=== PATIENT | female | born 1945 | race Caucasian/White ===

== ENCOUNTER → 2017-12-16 12:08 | Outpatient (CLI) | payer MEDICARE, SELFPAY ==
[2017-12-16 12:36] LABS: Basophils # 0.1 K/mm3 (0-0.2); Basophils % 1.3 % (0.1-2.0); Eosinophils # 0.2 K/mm3 (0.0-0.4); Eosinophils % 2.9 % (0.1-12.0); Hematocrit 27.8 % (37.0-47.0); Hemoglobin 8.1 g/dL (12.2-16.2); Lymphocytes # 2.1 K/mm3 (0.7-4.5); Lymphocytes % 35.9 K/mm3 (10-50); Mean Corpuscular HGB Conc 29.2 g/dL (31.8-35.4); Mean Corpuscular Hemoglobin 22.3 pg (27.0-31.2); Mean Corpuscular Volume 76.6 fl (81-99); Mean Platelet Volume 10.6 fl (7.4-10.4); Monocytes # 0.4 K/mm3 (0.1-1.0); Monocytes % 6.6 % (1.7-9.3); Neutrophils # 3.2 K/mm3 (1.8-7.8); Neutrophils % 53.3 % (37.0-80.0); Platelet Count 335 K/mm3 (142-424); Red Blood Count 3.63 M/mm3 (4.20-5.40); Red Cell Distribution Width 15.5 % (11.5-17.5); White Blood Count 5.9 K/mm3 (4.8-10.8)
[2017-12-16 12:58] LABS: Hemoglobin A1C 6.6 % (0.0-7.0)
[2017-12-16 14:20] LABS: Alanine Aminotransferase 25 U/L (12-78); Albumin Level 4.1 gm/dL (3.4-5.0); Albumin/Globulin Ratio 1.4 (1.1-1.8); Alkaline Phosphatase 76 U/L (46-116); Anion Gap 13.2 mEq/L (5-15); Aspartate Amino Transferase 14 U/L (15-37); Bilirubin,Total 0.5 mg/dL (0.2-1.0); Blood Urea Nitrogen 15 mg/dL (7-18); Calcium 9.5 mg/dL (8.5-10.1); Carbon Dioxide 27 mmol/L (21.0-32.0); Chloride 110 mmol/L (98-107); Creatinine,Serum 0.75 mg/dL (0.55-1.02); Estimated Glomerular Filt Rate 76 ml/min (>60); Ferritin 3 ng/mL (8-388); GFR (African American) 92 ML/MIN (>60); Globulin 2.9 gm/dl (1.3-3.2); Glucose 56 mg/dL (74-106); Potassium 4.2 mmoL/L (3.5-5.1); Sodium 146 mmol/L (136-145); Thyroid Stimulating Hormone 1.54 uIU/ml (0.358-3.740)
[2017-12-18 11:16] LABS: Iron 15 ug/dL (27-139); UIBC 478 ug/dL (118-369)
[2017-12-19 05:15] LABS: Folate 9.2 ng/mL (>3.0)
[2017-12-19 06:28] LABS: Iron Saturation 3 % (15-55)
[2017-12-19 06:31] LABS: Vitamin B12 224 pg/mL (232-1245)
== END ==
PROVIDERS: PCP Nurse Practitioner Family; Visit Provider Nurse Practitioner Family
DX: D64.9 Anemia, unspecified (principal); E11.9 Type 2 diabetes mellitus without complications; I73.9 Peripheral vascular disease, unspecified
CPT/HCPCS: 36415; 80053; 82607; 82728; 82746; 83036; 83550; 84443; 85025; 86850

== ENCOUNTER → 2017-12-18 15:06 | Outpatient (CLI) | payer MEDICARE, SELFPAY ==
[2017-12-18 16:43] LABS: Occult Blood,Stool Negative (Negative)
== END ==
PROVIDERS: PCP Nurse Practitioner Family; Visit Provider Nurse Practitioner Family
DX: D64.9 Anemia, unspecified (principal); I73.9 Peripheral vascular disease, unspecified
CPT/HCPCS: 82272; G0328

== ENCOUNTER 2017-12-19 08:14 | Outpatient (CLI) | payer MEDICARE, SELFPAY ==
[2017-12-19] VITALS (19 sets, daily range): BP systolic 132–159; BP diastolic 56–89; PULSE 72–86; RESP 18; TEMP 36.4–36.6; O2SAT 97–98; BMI 27.4
[2017-12-19 14:49] LABS: Hematocrit 31.1 % (37.0-47.0); Hemoglobin 9.4 g/dL (12.2-16.2)
== END 2017-12-19 15:05 | disposition home or self-care (01) ==
LOC: INF 08:16
PROVIDERS: Family Provider Nurse Practitioner Family; PCP Nurse Practitioner Family; Visit Provider Nurse Practitioner Family
DX: D64.9 Anemia, unspecified (principal)
CPT/HCPCS: 36430; 85014; 85018; 86850; P9016

== ENCOUNTER → 2018-01-01 14:36 | Outpatient (CLI) | payer MEDICARE, SELFPAY ==
[2018-01-01 15:11] LABS: Basophils # 0.1 K/mm3 (0-0.2); Basophils % 1.4 % (0.1-2.0); Eosinophils # 0.2 K/mm3 (0.0-0.4); Eosinophils % 3.2 % (0.1-12.0); Hemoglobin 10.4 g/dL (12.2-16.2); Lymphocytes # 2.9 K/mm3 (0.7-4.5); Lymphocytes % 41.4 K/mm3 (10-50); Mean Corpuscular Hemoglobin 22.8 pg (27.0-31.2); Mean Corpuscular Volume 78.6 fl (81-99); Mean Platelet Volume 9.3 fl (7.4-10.4); Monocytes # 0.5 K/mm3 (0.1-1.0); Monocytes % 7.2 % (1.7-9.3); Neutrophils # 3.3 K/mm3 (1.8-7.8); Neutrophils % 46.9 % (37.0-80.0); Platelet Count 382 K/mm3 (142-424); Red Blood Count 4.57 M/mm3 (4.20-5.40); Red Cell Distribution Width 17.7 % (11.5-17.5)
[2018-01-01 15:38] LABS: Blood Urea Nitrogen 16 mg/dL (7-18); Carbon Dioxide 27 mmol/L (21.0-32.0); Creatinine,Serum 0.74 mg/dL (0.55-1.02); Estimated Glomerular Filt Rate 78 ml/min (>60); GFR (African American) 94 ML/MIN (>60); Glucose 100 mg/dL (74-106)
[2018-01-01 18:08] LABS: Chloride 106 mmol/L (98-107); Sodium 143 mmol/L (136-145)
== END ==
PROVIDERS: Visit Provider Nurse Practitioner Family
DX: D50.9 Iron deficiency anemia, unspecified (principal)
CPT/HCPCS: 36415; 80048; 85025

== ENCOUNTER → 2021-08-02 12:06 | Outpatient (CLI) | payer MEDICARE, SELFPAY ==
[2021-08-02 12:34] LABS: Basophils # 0.1 K/mm3 (0-0.2); Basophils % 1.5 % (0.1-2.0); Eosinophils # 0.5 K/mm3 (0.0-0.4); Eosinophils % 5.9 % (0.1-12.0); Hematocrit 38.4 % (37.0-47.0); Hemoglobin 11.7 g/dL (12.2-16.2); Lymphocytes # 2.7 K/mm3 (0.7-4.5); Lymphocytes % 33.9 % (10-50); Mean Corpuscular HGB Conc 30.3 g/dL (31.8-35.4); Mean Corpuscular Hemoglobin 27.2 pg (27.0-31.2); Mean Corpuscular Volume 89.7 fl (81-99); Mean Platelet Volume 9.8 fl (7.4-10.4); Monocytes # 0.5 K/mm3 (0.1-1.0); Monocytes % 5.8 % (1.7-9.3); Neutrophils # 4.1 K/mm3 (1.8-7.8); Neutrophils % 52.9 % (37.0-80.0); Platelet Count 380 K/mm3 (142-424); Red Blood Count 4.29 M/mm3 (4.20-5.40); Red Cell Distribution Width 15.5 % (11.5-17.5); White Blood Count 7.8 K/mm3 (4.8-10.8)
[2021-08-02 13:16] LABS: Chloride 104 mmol/L (98-107); Sodium 140 mmol/L (136-145)
[2021-08-02 13:17] LABS: Potassium 4.4 mmoL/L (3.5-5.1)
[2021-08-02 13:19] LABS: Blood Urea Nitrogen 20 mg/dl (7-17)
[2021-08-02 13:20] LABS: Anion Gap 12.4 mEq/L (5-15); Calcium 11.1 mg/dl (8.4-10.2); Carbon Dioxide 28 mmol/L (22.0-30.0); Estimated Glomerular Filt Rate 98 ml/min (>60); GFR (African American) 118 ML/MIN (>60); Glucose 133 mg/dl (74-100); Magnesium 1.6 mg/dl (1.6-2.3)
== END ==
PROVIDERS: Visit Provider Nurse Practitioner Family
DX: I73.9 Peripheral vascular disease, unspecified (principal); Z79.899 Other long term (current) drug therapy
CPT/HCPCS: 36415; 80048; 83735; 85025

== ENCOUNTER → 2021-11-03 15:35 | Outpatient (CLI) | payer MEDICARE, SELFPAY ==
[2021-11-03 16:44] LABS: Basophils # 0.2 K/mm3 (0-0.2); Basophils % 1.5 % (0.1-2.0); Eosinophils # 0.3 K/mm3 (0.0-0.4); Eosinophils % 2.2 % (0.1-12.0); Hematocrit 38.1 % (37.0-47.0); Hemoglobin 12.1 g/dL (12.2-16.2); Lymphocytes # 2.7 K/mm3 (0.7-4.5); Lymphocytes % 21.9 % (10-50); Mean Corpuscular HGB Conc 31.8 g/dL (31.8-35.4); Mean Corpuscular Hemoglobin 25.4 pg (27.0-31.2); Mean Platelet Volume 9.5 fl (7.4-10.4); Monocytes # 0.8 K/mm3 (0.1-1.0); Monocytes % 6.1 % (1.7-9.3); Neutrophils # 8.4 K/mm3 (1.8-7.8); Neutrophils % 68.4 % (37.0-80.0); Platelet Count 452 K/mm3 (142-424); Red Blood Count 4.76 M/mm3 (4.20-5.40); Red Cell Distribution Width 15.5 % (11.5-17.5); White Blood Count 12.3 K/mm3 (4.8-10.8)
[2021-11-03 17:08] LABS: Erythrocyte Sedimentation Rate 48 mm/hr (0-30)
[2021-11-03 18:05] LABS: Alanine Aminotransferase 13 U/L (12-78); Albumin Level 3.7 g/dl (3.5-5.0); Albumin/Globulin Ratio 1.4 (1.1-1.8); Alkaline Phosphatase 129 U/L (38-126); Anion Gap 12.6 mEq/L (5-15); Aspartate Amino Transferase 19 U/L (14-36); Bilirubin,Total 0.2 mg/dl (0.2-1.3); Blood Urea Nitrogen 12 mg/dl (7-17); Calcium 11.4 mg/dl (8.4-10.2); Carbon Dioxide 30 mmol/L (22.0-30.0); Chloride 100 mmol/L (98-107); Estimated Glomerular Filt Rate 121 ml/min (>60); GFR (African American) 146 ML/MIN (>60); Globulin 2.7 g/dL (1.3-3.2); Glucose 97 mg/dl (74-100); Potassium 4.6 mmoL/L (3.5-5.1); Sodium 138 mmol/L (136-145); Total Protein,Serum 6.4 g/dl (6.3-8.2)
[2021-11-03 18:10] LABS: C-Reactive Protein 93.3 mg/L (0-4)
== END ==
PROVIDERS: Visit Provider Nurse Practitioner Family
DX: L24.A9 Irritant contact dermatitis due friction or contact with other specified body fluids (principal); S81.802A Unspecified open wound, left lower leg, initial encounter
CPT/HCPCS: 36415; 80053; 85025; 85651; 86140; 87070; 87077; 87186; 87205

== ENCOUNTER 2021-12-22 15:00 | Outpatient (RCR) | payer MEDICARE, SELFPAY ==
--- NOTE | 2021-11-08 11:12 | [facility].PTOPWND ---
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 She reports distal residual limb wound did have a VAC dressing in place previously, but now has slough requiring debridement. She also has a new onset anterior L groin wound present for 1-2 wks with insidious onset. Culture from the L groin wound was positive for staph aureus after culture by [employer]. PMH: HTN, DM-II, phantom limb pains . Wound Eval Wound Left Anterior Distal Leg Wound Type Incision Is This a Chronic Wound Yes Wound Length (cm) 5.9 Wound Width (cm) 3.2 Wound Depth (cm) 2.3 Wound Bed Appearance Beefy Red,Yellow,Slough Percentage Granulated (%) 60 Percentage of Slough (%) 40 Wound Margins Description Well Defined Drainage Description Serosanguineous Drainage Amount Moderate Wound Topical Solution/Irrigant Saline Irrigant Packing Type Specialty Absorptive Comment opticell Ag Primary Dressing Composite Comment optifoam gentle border Wound Secondary Dressing Type Gauze Roll/Wrap,Adhering Gauze Roll Wound Debridement Method Sharps,Forceps,Gauze Wound Debridement Amount of Tissue Moderate Removed Wound Debridement Result Yellow Sloughing Remains Dressing Change Patient Tolerance Tolerated Well Left Groin Wound Type unknwn etiology Is This a Chronic Wound No Wound Length (cm) 1.0 Wound Width (cm) 1.0 Wound Bed Appearance Beefy Red,[place] Percentage Granulated (%) 100 Wound Margins Description Well Defined Drainage Description Serosanguineous
--- NOTE | 2021-12-22 15:42 | [facility]H.RHREAS ---
Rehab Reassessment Rehab OP Re-assessment Start: 12/22/21 15:30 Freq: Status: Active Protocol: Document 12/22/21 15:38 ELOISE (Rec: 12/22/21 15:42 PHOLILLIAN [id number]) Electronically Signed By David Whitmore, PT 12/22/21 15:38 Rehab Re-assessment Subjective Subjective Pt reports tenderness around the superior wound on her L LE at the ant hip crease. Objective Objective Notes Groin wound: L= 0.8 cm, W= 0.8 cm, D= 0.8 cm Anterior distal L LE wound: L= 4.8cm, W= 2.2 cm, D= 0.8 cm, U at 6 0'clock= 0.4 cm. Pt inferior L LE wound is healing well with almost complete granulation tissue and significantly reduced wound area overall. Pt Superior L LE wound at the anterior hip crease shows little to now healing, has opening at the center with with depth of 0.8 cm. This superior wound remains tender during exploration and has pururlent drainage noted on dressings. Assessment Progress Assessment Slower Than Expected Assessment Notes Pt has significant changes in status at thsi point due to lack of L groin wound healing. She has shown excellent granulation tissue in the distal L LE wound with significant decrease in wound area. However, the L groin wound has now shown purulent drainage and is not decreased in size at all at this point. Patient goals met ST,2,3,4 Goals Not Met LT,2,3 Revised Goals none Plan Plan Continue per initial POC. Frequency of Therapy 2 x/wk Duration of therapy 8 wks Time and Billing Re-Eval Time 15 Re-Eval Billing Units 1 PHYSICIAN CERTIFICATION: I certify the specified therapy services for Rowena Alexandre are required, authorized, and reviewed every 30 days.
== END 2021-12-22 15:05 | disposition home or self-care (01) ==
LOC: PT 15:00
PROVIDERS: PCP Nurse Practitioner Family; Visit Provider Nurse Practitioner Family
DX: L08.9 Local infection of the skin and subcutaneous tissue, unspecified (principal); Z89.612 Acquired absence of left leg above knee
CPT/HCPCS: 97163; 97164; 97597